=== PATIENT | male | born 1980 | race Caucasian/White ===

== ENCOUNTER 2023-11-10 18:09 | Emergency (ER) | payer OTHER, SELFPAY ==
[2023-11-10 18:15] VITALS: BP 147/87; PULSE 75; O2SAT 96
[2023-11-10 18:16] VITALS: BP 147/87; PULSE 83; RESP 18; TEMP 36.6; O2SAT 97; BMI 30.6
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
[2023-11-10 18:25] VITALS: BP 151/89; PULSE 85; O2SAT 97
[2023-11-10 18:30] VITALS: BP 140/87; PULSE 71; O2SAT 98
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
[2023-11-10] MEDS: ACETAMINOPHEN 325 MG TABLET PO (18:40)
[2023-11-10] MEDS: IBUPROFEN 400 MG TABLET PO (18:41)
[2023-11-10] MEDS: diazePAM 5 MG TABLET PO (18:41)
[2023-11-10 19:00] VITALS: PULSE 80; O2SAT 97
[2023-11-10 19:30] VITALS: BP 147/80; PULSE 74; O2SAT 97
== END 2023-11-10 20:04 | disposition home or self-care (01) ==
PROVIDERS: Emergency Provider Emergency Medicine; PCP Physician Assistant
DX: S16.1XXA Strain of muscle, fascia and tendon at neck level, initial encounter (principal); S09.90XA Unspecified injury of head, initial encounter; V89.2XXA Person injured in unspecified motor-vehicle accident, traffic, initial encounter
CPT/HCPCS: 70450; 72125; 99283; 99284